=== PATIENT | male | born 1955 | race Caucasian/White ===

== ENCOUNTER 2020-07-03 17:19 | Emergency (ER) | payer BC ==
[~2020-07-03] VITALS: Ht 182.9 cm; Wt 104.3 kg
[~2020-07-03 17:19] MED LIST: ALLERGY MED; ASPIR 8181 MG PO; CRESTOR10 MG PO; FISH OIL 1,001000 M2 PO
[2020-07-03] MEDS ORDERED: OMEPRAZOLE 20 M20 M1 PO (17:38)
[2020-07-03 17:51] LABS: ABSOLUTE LYMPHOCYTES 3.6 thou/uL (0.8-5.3); HEMOGLOBIN 15.1 gm/dL (14.0-18.0); LYMPHOCYTES 45.8 %; NUCLEATED RBCS 0 /100WBC; RDW-CV 13.3 % (10.5-14.5)
[2020-07-03 17:53] LABS: ABSOLUTE BASOPHILS 0.1 thou/uL (0.0-0.2); ABSOLUTE EOSINOPHILS 0.2 thou/uL (0.0-0.7); ABSOLUTE MONOCYTES 0.8 thou/uL (0.0-1.2); ABSOLUTE NEUTROPHILS 3.2 thou/uL (1.6-8.1); BASOPHILS 0.9 %; HEMATOCRIT 44.4 % (42.0-52.0); MCH 33.1 pg (26.0-34.0); MCV 97.2 fL (80.0-100.0); MONOCYTES 10.6 %; MPV 7.2 fl. (7.2-11.1); PLATELET COUNT* 270 thou/uL (150-400); POLYS 39.7 %; RBC 4.57 mil/uL (4.50-6.00); WBC 7.9 thou/uL (4.0-11.0)
[2020-07-03 18:01] LABS: CALCIUM 9.2 mg/dL (8.5-10.1); CREATININE 1.2 mg/dL (0.6-1.3); POTASSIUM 4.1 mmol/L (3.5-5.1)
[2020-07-03 18:04] LABS: PROTIME 10.9 Seconds (9.20-11.50)
[2020-07-03 18:15] LABS: ALBUMIN 4.1 g/dL (3.4-5.0); CK-MB MASS 0.8 ng/mL (<0.5-3.6); TOTAL BILIRUBIN 0.7 mg/dL (<0.1-1.0); TOTAL PROTEIN 7.5 g/dL (6.4-8.2)
[2020-07-03 18:52] VITALS: BP 128/68
--- NOTE | 2020-07-04 09:45 | EKG ---
[place] [address] ELECTROCARDIOGRAM REPORT Name: JAMES SEPULVEDA Room: [facility]#: [id number] Admission: 07/03/20 Attend Phys: Discharge: 07/03/20 Date of : 53 Date of Service: 07/03/201751 Report #: [id number] THIS REPORT FOR: //name// [facility] ED Test Date: 2020-07-03 Test Time: 17:52:04 Pat Name: JAMES SEPULVEDA Department: Room: Gender: Director [employer]: : 1955 Requested By: Mack Carpenter Order Number: [id number] MD: Armin Thao Measurements Intervals [place] Rate: 68 P: 2 OR: 133 QRS: -32 QRSD: 93 T: 6 QT: 392 QTc: 417 Interpretive Statements Sinus rhythm Probable left ventricular hypertrophy Baseline wander in lead(s) V5 No previous ECG available for comparison Electronically Signed On 07-04-2020 9:45:43 CDT by Armin Thao [email or web address] <ELECTRONICALLY SIGNED> By: Armin Thao MD, [facility] 07/04/20 0945 [id number] 175 Armin Thao MD, [facility] /EPI
== END 2020-07-03 18:53 | disposition home or self-care (01) ==
LOC: M.ERS 17:19
PROVIDERS: Family Medicine
DX: R51.9 Headache, unspecified (principal); R06.02 Shortness of breath; R07.89 Other chest pain; E78.5 Hyperlipidemia, unspecified; Z98.890 Other specified postprocedural states; Z79.899 Other long term (current) drug therapy; Z88.5 Allergy status to narcotic agent; Z79.82 Long term (current) use of aspirin